=== PATIENT | male | born 1985 | race Caucasian/White ===

== ENCOUNTER 2023-01-16 08:21 | Outpatient (CLI) | payer BC | END 2023-01-16 08:22 | disposition home or self-care (01) | LOC: CSHULT 08:21 | PROVIDERS: ATTEND Family Medicine | DX: E04.1 Nontoxic single thyroid nodule (principal) | CPT/HCPCS: 76536 ==

== ENCOUNTER 2024-07-21 09:02 | Outpatient (CLI) | payer BC | END 2024-07-21 09:03 | disposition home or self-care (01) | LOC: CSHCT 09:02 | PROVIDERS: ATTEND Specialist | DX: D49.0 Neoplasm of unspecified behavior of digestive system (principal); Z90.89 Acquired absence of other organs | CPT/HCPCS: 74177 ==